=== PATIENT | male | born 1995 | race African-American/Black ===

== ENCOUNTER 2020-10-08 00:50 | Emergency (ER) | payer MEDICARE, MEDICAID, SELFPAY ==
[2020-10-08 00:53] VITALS: BP 115/66; PULSE 61; RESP 16; TEMP 36.7; O2SAT 100
--- NOTE | 2020-10-08 01:07 | PC.NURSE ---
Pt calm and cooperative. Pt reports being homeless and the last several hours he has had thoughts of suicide. No plan. No prior attempts. Pt reports he has been hospitalized 4-5 times for depression. No reports the officer that brought him told him we had a bed that he could sleep in. Pt asking for food as he hasn't eaten today. Food provided. Pt has no weapons on his person. Denies feeling sick in any way.
[2020-10-08 01:44] LABS: Basophils Percent Auto 0.3 % (0.2-1.2); Eosinophils Percent Auto 0.5 % (0-4.4); Hematocrit 41.2 % (42.0-52.0); Hemoglobin 14.2 g/dL (14.0-18.0); Immature Granulocyte Absolute 0.01 K/mm3 (0.00-0.031); Immature Granulocyte Percent A 0.1 % (0-0.5); Lymphocytes Absolute Auto 2.37 K/mm3 (0.9-3.2); Lymphocytes Percent Auto 32.4 % (18.3-44.2); Mean Corpuscular HGB Conc 34.5 g/dl (32-36); Mean Corpuscular Hemoglobin 30.6 pg (26-34); Mean Corpuscular Volume 88.8 fl (80-100); Mean Platelet Volume 10.9 fl (7.4-10.4); Monocytes Absolute Auto 0.4 K/mm3 (0.1-0.6); Neutrophils Absolute Auto 4.4 K/mm3 (1.3-6.7); Neutrophils Percent Auto 60.7 % (45.5-73.1); Platelet Count Result 170 k/mm3 (150-375); Red Blood Count 4.64 M/mm3 (4.6-6.20); Red Cell Distribution Width 13.4 % (11.5-14.5); White Blood Count 7.3 K/mm3 (4.5-10.0)
--- NOTE | 2020-10-08 01:55 | ED.GENADULT ---
HPI - General Adult General Chief complaint: Psychiatric Symptoms Stated complaint: suicidal Time Seen by Provider: 10/08/20 01:04 History of Present Illness HPI narrative: Patient a 25-year-old gentleman who presents the emergency department with chief complaint of suicidal ideation. Patient reports that pete has had some fleeting thoughts of wanting to harm himself but has no plan. Patient reports he has had no prior attempts before in the past reports that he has had thoughts before past. Patient states his symptoms began approximately 5 hours prior to arrival in the emergency department currently the patient has no other complaints. Related Data Allergies Allergy/AdvReac Type Severity Reaction Status Date / Time No Known Allergies Allergy Verified 10/08/20 03:37 Review of Systems Review of Systems: Narrative: A 10 system review of systems was completed on the patient and is negative except for what is stated in the HPI. Nursing and ancillary documentation was reviewed. Exam Narrative: Exam Narrative: GENERAL: Well-appearing, well-nourished, and in no acute distress. HEAD: Normocephalic, atraumatic. EYES: PERRLA and EOMI. ENT: Nares clear, no rhinorrhea or epistaxis. Mucous membranes moist. NECK: Supple. CHEST: Clear to auscultation. No respiratory distress. HEART: Regular rate and rhythm. No murmur heard. Normal peripheral pulses. ABDOMEN: Soft, nontender, nondistended, normal active bowel sounds. EXTREMITIES: Normal range of motion. No edema. SKIN: Warm, dry, no rash. NEURO: No focal deficits. Alert and oriented x3. PSYCH: Normal mood and affect. Course Course Emergency Course: Patient is medically cleared for psychiatric evaluation Patient was seen by the bakery worker conveyor line and cleared for outpatient follow-up with a safety contract Vital Signs Vital signs: Vital Signs Temperature 36.7 C 10/08/20 00:53 Pulse Rate 61 10/08/20 00:53 Respiratory Rate 16 10/08/20 00:53 Blood Pressure 115/66 10/08/20 00:53 Pulse Oximetry 100 10/08/20 00:53 Temperature 36.7 C 10/08/20 00:53 Pulse Rate 61 10/08/20 00:53 Respiratory Rate 16 10/08/20 00:53 Blood Pressure 115/66 10/08/20 00:53 Pulse Oximetry 100 10/08/20 00:53 Medical Decision Making Vital Signs Vital Signs: Vital Signs Temperature 36.7 C 10/08/20 00:53 Pulse Rate 61 10/08/20 00:53 Respiratory Rate 16 10/08/20 00:53 Blood Pressure 115/66 10/08/20 00:53 Pulse Oximetry 100 10/08/20 00:53 Temperature 36.7 C 10/08/20 00:53 Pulse Rate 61 10/08/20 00:53 Respiratory Rate 16 10/08/20 00:53 Blood Pressure 115/66 10/08/20 00:53 Pulse Oximetry 100 10/08/20 00:53 Lab Data Result diagrams: 10/08/20 01:38 10/08/20 01:38 Labs: Lab Results 10/08/20 10/08/20 10/08/20 Range/Units 01:38 01:38 01:39 WBC 7.3 (4.5-10.0) K/mm3 RBC 4.64 (4.6-6.20) M/mm3 Hgb 14.2 (14.0-18.0) g/dL Hct 41.2 L (42.0-52.0) % MCV 88.8 (80-100) fl MCH 30.6 (26-34) pg MCHC 34.5 (32-36) g/dl RDW 13.4 (11.5-14.5) % Plt Count 170 (150-375) k/mm3 MPV 10.9 H (7.4-10.4) fl Immature Gran % (Auto) 0.1 (0-0.5) % Neut % (Auto) 60.7 (45.5-73.1) % Lymph % (Auto) 32.4 (18.3-44.2) % [place] % (Auto) 6.0 (2.6-8.5) % Eos % (Auto) 0.5 (0-4.4) % Baso % (Auto) 0.3 (0.2-1.2) % Lymph # (Auto) 2.37 (0.9-3.2) K/mm3 [place] # (Auto) 0.4 (0.1-0.6) K/mm3 Eos # (Auto) 0.0 (0-0.3) K/mm3 Baso # (Auto) 0.0 (0.0-0.1) K/mm3 Abs Immat Gran (auto) 0.01 (0.00-0.031) K/mm3 Absolute Neuts (auto) 4.4 (1.3-6.7) K/mm3 Absolute Nucleated RBC 0.0 (0.0-0.012) K/mm3 Nucleated RBC % 0.0 (0.0-0.2) % Sodium 138 (137-145) mmol/L Potassium 3.6 (3.4-5.0) mmol/L Chloride 106 (98-107) mmol/L Carbon Dioxide 27 (22-30) mmol/L Anion Gap 5 L (8-16) mmol/L BUN 15 (9-20) mg/dL Creatinine 1.00
[2020-10-08 01:58] LABS: Alanine Aminotransferase 22 U/L (4-50); Albumin Level 4.3 g/dL (3.5-5.1); Alkaline Phosphatase 56 U/L (38-126); Anion Gap 5 mmol/L (8-16); Aspartate Amino Transferase 32 U/L (17-59); Bilirubin,Total 0.1 mg/dL (0.2-1.3); Blood Urea Nitrogen 15 mg/dL (9-20); Calcium 9.3 mg/dL (8.4-10.2); Carbon Dioxide 27 mmol/L (22-30); Chloride 106 mmol/L (98-107); Estimated CRCL calculation 97 ml/min; Estimated Glomerular Filt Rate > 60; Glucose 104 mg/dL (75-110); Potassium 3.6 mmol/L (3.4-5.0); Sodium 138 mmol/L (137-145)
[2020-10-08 01:59] LABS: Acetaminophen < 10 ug/mL (10-30); Ethanol < 10 mg/dL (<10); Salicylate < 1.0 mg/dL (2-20)
[2020-10-08 02:03] LABS: Add Urine Microscopic? YES; Appearance Urine Cloudy (Clear); Bacteria Urine Trace /hpf; Bilirubin Urine Negative (Negative); Blood Urine Negative (Negative); Color Urine Yellow (Yellow); Glucose Urine UA Negative (Negative); Ketones Urine Negative (Negative); Leukocyte Esterase Ur 1+ LEU/UL (Negative); Mucus Urine Rare /lpf; Nitrate Urine Negative (Negative); Protein Urine 2+ mg/dL (Negative); Specific Grav Ur 1.027 (1.001-1.035); Squamous Epithelial Cell Urine Rare /hpf (Few)
[2020-10-08 02:13] LABS: Amphetamine Screen Urine Negative (Negative); Barbiturate Screen Urine Negative (Negative); Benzodiazepines Screen Urine Negative (Negative); Cannabinoid Screen Urine Positive (Negative); Cocaine Screen Urine Negative (Negative); Methadone Screen Urine Negative (Negative); Opiate Screen Urine Negative (Negative); Phencyclidine Screen Urine Negative (Negative)
--- NOTE | 2020-10-08 05:05 | PC.NURSE ---
optical worker at bedside. Pt participating.
[2020-10-08 06:32] VITALS: BP 121/62; PULSE 66; RESP 16; O2SAT 100
== END 2020-10-08 06:32 | disposition home or self-care (01) ==
PROVIDERS: Emergency Provider Emergency Medicine
DX: F32.9 Major depressive disorder, single episode, unspecified (principal); R82.998 Other abnormal findings in urine
CPT/HCPCS: 36415; 80053; 80307; 81001; 84443; 85025; 87086; 99284

== ENCOUNTER 2020-12-13 01:30 | Emergency (ER) | payer MEDICARE, MEDICAID, SELFPAY ==
[2020-12-13 01:40] VITALS: BP 105/66; PULSE 69; RESP 16; TEMP 36.4; O2SAT 96
--- NOTE | 2020-12-13 01:46 | PC.NURSE ---
Sitter not required at this time due to [place] score per ERP.
--- NOTE | 2020-12-13 01:46 | ED.GENADULT ---
HPI - General Adult General Chief complaint: Psychiatric Symptoms Stated complaint: SI History of Present Illness HPI narrative: Patient is a 25-year-old gentleman who presents the emergency department with chief complaint of bad thoughts. Patient states that he has been having thoughts in his mind that are possibly telling him to harm himself. The patient states he is not quite sure what there is particularly telling him and the patient reports has not tried to hurt himself. The patient denies illicit drug use denies drinking tonight or trying to harm himself. Patient states he would like to talk to somebody for possible help. Related Data Allergies Allergy/AdvReac Type Severity Reaction Status Date / Time No Known Allergies Allergy Verified 10/08/20 03:37 Review of Systems Review of Systems: Narrative: A 10 system review of systems was completed on the patient and is negative except for what is stated in the HPI. Nursing and ancillary documentation was reviewed. Exam Narrative: Exam Narrative: GENERAL: Well-appearing, well-nourished, and in no acute distress. HEAD: Normocephalic, atraumatic. EYES: PERRLA and EOMI. ENT: Nares clear, no rhinorrhea or epistaxis. Mucous membranes moist. NECK: Supple. CHEST: Clear to auscultation. No respiratory distress. HEART: Regular rate and rhythm. No murmur heard. Normal peripheral pulses. ABDOMEN: Soft, nontender, nondistended, normal active bowel sounds. EXTREMITIES: Normal range of motion. No edema. SKIN: Warm, dry, no rash. NEURO: No focal deficits. Alert and oriented x3. PSYCH: Normal mood and affect. Course Course Emergency Course: Patient is medically cleared for psychiatric evaluation Vital Signs Vital signs: Vital Signs Temperature 36.4 C 12/13/20 01:40 Pulse Rate 69 12/13/20 01:40 Respiratory Rate 16 12/13/20 01:40 Blood Pressure 105/66 12/13/20 01:40 Pulse Oximetry 96 12/13/20 01:40 Temperature 36.4 C 12/13/20 01:40 Pulse Rate 69 12/13/20 01:40 Respiratory Rate 16 12/13/20 01:40 Blood Pressure 105/66 12/13/20 01:40 Pulse Oximetry 96 12/13/20 01:40 Medical Decision Making Vital Signs Vital Signs: Vital Signs Temperature 36.4 C 12/13/20 01:40 Pulse Rate 69 12/13/20 01:40 Respiratory Rate 16 12/13/20 01:40 Blood Pressure 105/66 12/13/20 01:40 Pulse Oximetry 96 12/13/20 01:40 Temperature 36.4 C 12/13/20 01:40 Pulse Rate 69 12/13/20 01:40 Respiratory Rate 16 12/13/20 01:40 Blood Pressure 105/66 12/13/20 01:40 Pulse Oximetry 96 12/13/20 01:40 Lab Data Result diagrams: 12/13/20 01:43 12/13/20 01:43 Labs: Lab Results 12/13/20 12/13/20 12/13/20 Range/Units 01:43 01:43 01:43 WBC 3.6 L (4.5-10.0) K/mm3 RBC 4.88 (4.6-6.20) M/mm3 Hgb 14.6 (14.0-18.0) g/dL Hct 43.3 (42.0-52.0) % MCV 88.7 (80-100) fl MCH 29.9 (26-34) pg MCHC 33.7 (32-36) g/dl RDW 13.3 (11.5-14.5) % Plt Count 176 (150-375) k/mm3 MPV 11.3 H (7.4-10.4) fl Immature Gran % (Auto) 0.3 (0-0.5) % Neut % (Auto) 35.0 L (45.5-73.1) % Lymph % (Auto) 51.3 H (18.3-44.2) % [place] % (Auto) 11.7 H (2.6-8.5) % Eos % (Auto) 1.1 (0-4.4) % Baso % (Auto) 0.6 (0.2-1.2) % Lymph # (Auto) 1.84 (0.9-3.2) K/mm3 [place] # (Auto) 0.4 (0.1-0.6) K/mm3 Eos # (Auto) 0.0 (0-0.3) K/mm3 Baso # (Auto) 0.0 (0.0-0.1) K/mm3 Abs Immat Gran (auto) 0.01 (0.00-0.031) K/mm3 Absolute Neuts (auto) 1.3 (1.3-6.7) K/mm3 Absolute Nucleated RBC 0.0 (0.0-0.012) K/mm3 Nucleated RBC % 0.0 (0.0-0.2) % Sodium (137-145) mmol/L Potassium (3.4-5.0) mmol/L Chloride (98-107) mmol/L Carbon Dioxide (22-30) mmol/L Anion Gap (8-16) mmol/L BUN (9-20) mg/dL Creatinine (0.7-1.3) mg/dL Estim Creat Clear Calc ml/min Estimated GFR (59 - ) Glucose (65-110) mg/dL Calcium (8.4-10.2) mg
[2020-12-13 01:51] LABS: Basophils Percent Auto 0.6 % (0.2-1.2); Eosinophils Percent Auto 1.1 % (0-4.4); Hematocrit 43.3 % (42.0-52.0); Hemoglobin 14.6 g/dL (14.0-18.0); Immature Granulocyte Absolute 0.01 K/mm3 (0.00-0.031); Immature Granulocyte Percent A 0.3 % (0-0.5); Lymphocytes Absolute Auto 1.84 K/mm3 (0.9-3.2); Lymphocytes Percent Auto 51.3 % (18.3-44.2); Mean Corpuscular HGB Conc 33.7 g/dl (32-36); Mean Corpuscular Hemoglobin 29.9 pg (26-34); Mean Corpuscular Volume 88.7 fl (80-100); Mean Platelet Volume 11.3 fl (7.4-10.4); Monocytes Absolute Auto 0.4 K/mm3 (0.1-0.6); Monocytes Percent Auto 11.7 % (2.6-8.5); Neutrophils Absolute Auto 1.3 K/mm3 (1.3-6.7); Platelet Count Result 176 k/mm3 (150-375); Red Blood Count 4.88 M/mm3 (4.6-6.20); Red Cell Distribution Width 13.3 % (11.5-14.5); White Blood Count 3.6 K/mm3 (4.5-10.0)
--- NOTE | 2020-12-13 01:57 | ECG_ITS ---
Measurements Intervals [place] Rate: 59 P: 58 MS: 122 QRS: 78 QRSD: 88 T: 50 QT: 380 QTc: 378 Interpretive Statements SINUS BRADYCARDIA WITH SHORT MS INTERVAL ST ELEVATION IN DIFFUSE LEADS- PROBABLY EARLY REPOLARIZATION ABNORMALITY BASELINE ARTIFACT- V5-V6 BORDERLINE ECG Electronically Signed On 12-13-2020 7:25:51 CDT by Joel Rojas D.O.
[2020-12-13 02:03] LABS: Add Urine Microscopic? YES; Appearance Urine Clear (Clear); Bacteria Urine Trace /hpf; Bilirubin Urine 1+ (Negative); Blood Urine Negative (Negative); Color Urine Amber (Yellow); Glucose Urine UA Negative (Negative); Ketones Urine Negative (Negative); Leukocyte Esterase Ur Negative LEU/UL (Negative); Mucus Urine Heavy /lpf; Nitrate Urine Negative (Negative); Protein Urine 1+ mg/dL (Negative); RBC Urine 0-2 /hpf (0-2); Squamous Epithelial Cell Urine Rare /hpf (Few)
[2020-12-13 02:04] LABS: Specific Grav Ur 1.031 (1.001-1.035)
[2020-12-13 02:09] LABS: Acetaminophen < 10 ug/mL (10-30); Ethanol < 10 mg/dL (<10); Salicylate < 1.0 mg/dL (2-20)
[2020-12-13 02:19] LABS: Barbiturate Screen Urine Negative (Negative); Benzodiazepines Screen Urine Negative (Negative)
[2020-12-13 02:20] LABS: Cannabinoid Screen Urine Positive (Negative); Cocaine Screen Urine Negative (Negative); Methadone Screen Urine Negative (Negative); Opiate Screen Urine Negative (Negative); Phencyclidine Screen Urine Negative (Negative)
[2020-12-13 02:21] LABS: Alanine Aminotransferase 31 U/L (4-50); Albumin Level 4.5 g/dL (3.5-5.1); Alkaline Phosphatase 58 U/L (38-126); Anion Gap 11 mmol/L (8-16); Aspartate Amino Transferase 46 U/L (17-59); Bilirubin,Total 0.7 mg/dL (0.2-1.3); Blood Urea Nitrogen 10 mg/dL (9-20); Calcium 9.6 mg/dL (8.4-10.2); Carbon Dioxide 22 mmol/L (22-30); Chloride 108 mmol/L (98-107); Estimated CRCL calculation 118 ml/min; Estimated Glomerular Filt Rate > 60; Glucose 130 mg/dL (65-110); Potassium 3.9 mmol/L (3.4-5.0); Sodium 141 mmol/L (137-145)
[2020-12-13 02:25] LABS: Amphetamine Screen Urine Negative (Negative)
--- NOTE | 2020-12-13 02:55 | PC.NURSE ---
Called crisis for assessment they will send someone out.
--- NOTE | 2020-12-13 03:49 | PC.NURSE ---
Crisis in room for evaluation at this time.
[2020-12-13 04:55] VITALS: BP 107/63; PULSE 69; RESP 16; O2SAT 98
== END 2020-12-13 05:00 | disposition home or self-care (01) ==
PROVIDERS: Emergency Provider Emergency Medicine
DX: F32.9 Major depressive disorder, single episode, unspecified (principal); R00.1 Bradycardia, unspecified; R94.31 Abnormal electrocardiogram [ECG] [EKG]
CPT/HCPCS: 36415; 80053; 80307; 81001; 84443; 85025; 93005; 99284

== ENCOUNTER 2020-12-31 04:53 | Emergency (ER) | payer MEDICARE, MEDICAID, SELFPAY ==
[2020-12-31 04:55] VITALS: BP 122/79; PULSE 67; RESP 16; TEMP 36.5; O2SAT 100
--- NOTE | 2020-12-31 05:03 | PC.NURSE ---
Pt reports to RN alone that the real reason he is here is for a rash to the genital area. Pt tells ERP that the reason he came was for a rash around the genital area that stings.
--- NOTE | 2020-12-31 05:18 | ED.GENADULT ---
HPI - General Adult General Chief complaint: Unspecified Stated complaint: blisters on feet Time Seen by Provider: 12/31/20 04:59 History of Present Illness HPI narrative: Patient is a 25-year-old gentleman who presents the emergency department with chief complaint of painful genital ulcer. The patient reports for the last several days he has had about a dime sized ulcer on the volar aspect of his penis. Patient states it is painful reports the area is soft and bleeds easily and is irritated whenever it touches his skin. Patient reports he is currently sexually active denies penile discharge denies fever. Related Data Allergies Allergy/AdvReac Type Severity Reaction Status Date / Time No Known Allergies Allergy Verified 12/31/20 04:59 Review of Systems Review of Systems: A 10 system review of systems was completed on the patient and is negative except for what is stated in the HPI. Nursing and ancillary documentation was reviewed. Exam Narrative: GENERAL: Well-appearing, well-nourished, and in no acute distress. HEAD: Normocephalic, atraumatic. EYES: PERRLA and EOMI. ENT: Nares clear, no rhinorrhea or epistaxis. Mucous membranes moist. NECK: Supple. CHEST: Clear to auscultation. No respiratory distress. HEART: Regular rate and rhythm. No murmur heard. Normal peripheral pulses. ABDOMEN: Soft, nontender, nondistended, normal active bowel sounds. EXTREMITIES: Normal range of motion. No edema. : There is a dime sized ulceration on the volar aspect of the penis SKIN: Warm, dry, no rash. NEURO: No focal deficits. Alert and oriented x3. PSYCH: Normal mood and affect. Course Course Emergency Course: Due to the lesion being painful this is most likely consistent with chancroid the patient will be empirically covered for chancroid and also the patient will be empirically treated for chlamydia gonorrhea. Vital Signs Vital signs: Vital Signs Temperature 36.5 C 12/31/20 04:55 Pulse Rate 67 12/31/20 04:55 Respiratory Rate 16 12/31/20 04:55 Blood Pressure 122/79 12/31/20 04:55 Pulse Oximetry 100 12/31/20 04:55 Temperature 36.5 C 12/31/20 04:55 Pulse Rate 67 12/31/20 04:55 Respiratory Rate 16 12/31/20 04:55 Blood Pressure 122/79 12/31/20 04:55 Pulse Oximetry 100 12/31/20 04:55 Medical Decision Making Vital Signs Vital Signs: Vital Signs Temperature 36.5 C 12/31/20 04:55 Pulse Rate 67 12/31/20 04:55 Respiratory Rate 16 12/31/20 04:55 Blood Pressure 122/79 12/31/20 04:55 Pulse Oximetry 100 12/31/20 04:55 Temperature 36.5 C 12/31/20 04:55 Pulse Rate 67 12/31/20 04:55 Respiratory Rate 16 12/31/20 04:55 Blood Pressure 122/79 12/31/20 04:55 Pulse Oximetry 100 12/31/20 04:55 Lab Data Labs: Lab Results 12/31/20 12/31/20 Range/Units 05:41 05:41 Urine Color Straw (Yellow) Urine Appearance Clear (Clear) Urine pH 7.0 (5.0-9.0) Ur Specific [place] 1.006 (1.001-1.035) Urine Protein Negative (Negative) mg/dL Urine Glucose (UA) Negative (Negative) mg/dL Urine Ketones Negative (Negative) mg/dL Ur Blood (Man) Negative (Negative) Urine Nitrate Negative (Negative) Urine Bilirubin Negative (Negative) Urine Urobilinogen Negative (<2.0) mg/dL Leukocyte Esterase Rfl Negative (Negative) TIFFANY/UL C.trachomatis RNA (TMA) Pending N.gonorrhoeae RNA (TMA) Pending Discharge Plan Discharge Clinical Impression: Penile ulcer Patient Disposition: Home, Self-Care Condition: Stable Instructions: Antibiotic Form, Sexually Transmitted Diseases (ED) Prescriptions: New doxycycline hyclate 100 mg tablet 100 mg PO BID Qty: 14 RF: 0 Follow-up/Referrals: UNKNOWN,DOCTOR [Non-Staff] - Time of Disposition: :
[2020-12-31] MEDS: cefTRIAXone 1 GM VIAL 0.5 GM IM (05:27)
[2020-12-31] MEDS: LIDOCAINE HCL 1% LOCAL INJ 20 ML VIAL (05:30)
[2020-12-31] MEDS: AZITHROMYCIN 250 MG TABLET 1000 MG PO (05:31)
[2020-12-31 05:51] LABS: Add Urine Microscopic? NO; Appearance Urine Clear (Clear); Bilirubin Urine Negative (Negative); Blood Urine Negative (Negative); Color Urine Straw (Yellow); Glucose Urine UA Negative (Negative); Ketones Urine Negative (Negative); Leukocyte Esterase Ur Negative LEU/UL (Negative); Nitrate Urine Negative (Negative); Protein Urine Negative (Negative); Specific Grav Ur 1.006 (1.001-1.035); Urobilinogen Urine Negative mg/dL (<2.0)
[2020-12-31 06:15] VITALS: BP 101/66; PULSE 72; RESP 16; O2SAT 98
== END 2020-12-31 06:16 | disposition home or self-care (01) ==
LOC: ANHED 05:37
PROVIDERS: Emergency Provider Emergency Medicine
DX: N48.5 Ulcer of penis (principal)
CPT/HCPCS: 81003; 87491; 87591; 96372; 99283; A9270; J0696

== ENCOUNTER 2021-10-12 15:56 | Emergency (ER) | payer MEDICARE, MEDICAID, SELFPAY ==
[2021-10-12 16:08] VITALS: BP 93/44; PULSE 68; RESP 16; TEMP 36.6; O2SAT 99
[2021-10-12 18:04] VITALS: PULSE 76; TEMP 37.2
== END 2021-10-12 18:35 | disposition left against medical advice (07) ==
LOC: ANHED 18:24
PROVIDERS: Emergency Provider Emergency Medicine
DX: Z53.21 Procedure and treatment not carried out due to patient leaving prior to being seen by health care provider (principal)
CPT/HCPCS: 99199

== ENCOUNTER 2021-10-12 22:09 | Emergency (ER) | payer MEDICARE, MEDICAID, SELFPAY ==
--- NOTE | ~2021-10-12 | XR_ITS ---
EXAMINATION: XR foot RT min 3V DATE: 10/13/2021 02:23 INDICATION: Right foot pain TECHNIQUE: Dorsoplantar, oblique and lateral views of the right foot were obtained. COMPARISON: None. FINDINGS: Negligible displacement of a subacute appearing oblique extra articular fracture through distal metad iaphysis of the right fourth proximal phalanx. There is some mild sclerosis along the fracture line a nd small amount of callus formation consistent with early changes of healing. No other fractures iden tified. IMPRESSION: 1. Healing subacute fracture of the right fourth proximal phalanx. Reviewed, dictated and finalized at location A.
[2021-10-12 22:32] VITALS: BP 94/50; PULSE 63; RESP 16; TEMP 36.3; O2SAT 100
[2021-10-13] MEDS: IBUPROFEN 600 MG TABLET PO (01:39)
--- NOTE | 2021-10-13 02:56 | ED.LOWEXIN ---
HPI - Extremity Injury (Lower) General Chief Complaint: Extremity Injury, Lower Stated Complaint: toe and leg bruise. Time Seen by Provider: 10/13/21 01:14 Source: patient and RN notes reviewed Mode of arrival: ambulatory Limitations: no limitations History of Present Illness HPI Narrative: This is a 26 year old male who presents for evaluation of right 4th toe pain. Patient states over 1 week ago , he accidentally kicked someone's foot. He states he was seen in a physician's office. He states he was told he had broken 4th toe, and he states they reduced his toe. He was prescribed ibuprofen for his pain. He states he does not have ibuprofen for his pain any more. He is has pain to his right 4th toe that radiates up his foot with walking. He is unsure if he injured his right foot again. He als wants ibuprofen. He also states he accidentally hit his right cristobal on a bench 2 weeks ago. He suffered an abrasion at that time. He has been able to ambulate. Related Data Allergies Allergy/AdvReac Type Severity Reaction Status Date / Time No Known Allergies Allergy Verified 12/31/20 04:59 Review of Systems Review of Systems: All systems reviewed & are unremarkable except as noted in HPI and below PMFSH Past Medical History Medical History (Updated 10/13/21 @ 03:02 by Yaz Weston MD) Patient denies medical problems Social History Social History (Updated 10/13/21 @ 03:00 by Yaz Weston MD) Smoking status: Never smoker Exam Const: General: alert Orientation/consciousness: patient oriented x3 Eyes: EOM: EOMs intact bilaterally Resp: Effort & Inspection: normal respiratory effort Skin: General skin exam: normal color Rashes: no rashes Neuro: General: patient oriented x3, moves all extremities and CN's II-XI intact bilaterally Extrem: Other: right foot with palpable pulses, no significant swelling, TTP right fourth toe, no erythema Psych: Mental Status: mental status grossly normal Affect: normal affect Course Vital Signs Vital signs: Vital Signs Temperature 97.3 F L 10/12/21 22:32 Pulse Rate 63 10/12/21 22:32 Respiratory Rate 16 10/12/21 22:32 Blood Pressure 94/50 L 10/12/21 22:32 Pulse Oximetry 100 10/12/21 22:32 Temperature 97.3 F L 10/12/21 22:32 Pulse Rate 71 10/13/21 04:24 Respiratory Rate 16 10/13/21 04:24 Blood Pressure 99/58 L 10/13/21 04:24 Pulse Oximetry 96 10/13/21 04:24 MDM - Extremity Injury (Lower) Imaging Data Attestation: I personally reviewed and interpreted this imaging study as follows: My impression: right foot- possible proximal 4th phalanx fracture Discharge Plan Discharge Clinical Impression: Closed fracture of fourth toe of right foot Patient Disposition: Home, Self-Care Condition: Stable Instructions: Antibiotic Form, Toe Fracture (ED) Prescriptions: New ibuprofen 800 mg tablet 800 mg PO TID PRN (Reason: pain) Qty: 14 RF: 0 No Action doxycycline hyclate 100 mg tablet 100 mg PO BID Qty: 14 RF: 0 Follow-up/Referrals: PHYSICIAN,EDGING MACHINE CATCHER [Primary Care Provider] -
[2021-10-13 04:24] VITALS: BP 99/58; PULSE 71; RESP 16; O2SAT 96
== END 2021-10-13 04:25 | disposition home or self-care (01) ==
PROVIDERS: Emergency Provider General Practice
DX: S92.511A Displaced fracture of proximal phalanx of right lesser toe(s), initial encounter for closed fracture (principal); W51.XXXA Accidental striking against or bumped into by another person, initial encounter
CPT/HCPCS: 73630; 99283; A9270

== ENCOUNTER 2021-11-01 05:42 | Emergency (ER) | payer MEDICARE, MEDICAID, SELFPAY ==
[2021-11-01 05:53] VITALS: BP 117/57; PULSE 70; RESP 18; TEMP 36.6; O2SAT 99
== END 2021-11-01 06:20 | disposition left against medical advice (07) ==
DX: R30.0 Dysuria (principal)
CPT/HCPCS: 99199